=== PATIENT | female | born 1975 | race Caucasian/White ===

== ENCOUNTER → 2020-03-25 | Outpatient (CLI) | payer BC, SELFPAY | END | disposition home or self-care (01) | LOC: LABSPEC 16:03 | PROVIDERS: PCP Family Medicine; Referring Provider Family Medicine; Visit Provider Family Medicine | DX: Z20.828 Contact with and (suspected) exposure to other viral communicable diseases (principal) | CPT/HCPCS: 87635; U0003 ==

== ENCOUNTER → 2020-03-29 11:57 | Outpatient (CLI) | payer BC, SELFPAY | PROVIDERS: PCP Family Medicine; Visit Provider Family Medicine | DX: Z20.828 Contact with and (suspected) exposure to other viral communicable diseases (principal) | CPT/HCPCS: 87635; U0003 ==

== ENCOUNTER 2020-05-04 08:00 | Outpatient (RCR) | payer BC, SELFPAY | END 2020-05-04 23:59 | LOC: IMMUN 08:00 | PROVIDERS: PCP Family Medicine; Visit Provider Family Medicine | DX: Z23 Encounter for immunization (principal) | CPT/HCPCS: 0011A; 0012A ==

== ENCOUNTER → 2020-06-08 13:52 | Outpatient (CLI) | payer BC, SELFPAY ==
[2020-06-08 15:49] LABS: Anion Gap 6 (5-15); BUN 16 mg/dL (7-18); BUN/Creat Ratio 22.6 RATIO (10-20); Chloride 108 mmol/L (98-107); Cholesterol 187 mg/dL (200); Creatinine, Serum 0.71 mg/dL (0.55-1.02); EST Glomerular Filtration Rate 96 mL/min (>60); Est Glom Filt Rate - Afr Amer 116 mL/min (>60); Glucose 97 mg/dL (74-106); High Density Lipoprotein 67 mg/dL; Potassium 3.4 mmol/L (3.5-5.1); Sodium Level 140 mmol/L (136-145); Triglycerides 94 mg/dL; Very Low Density Lipoprotein 19 mg/dL (5-40)
--- NOTE | 2020-06-08 17:07 | RAD_ITS ---
STUDY: X-RAY - LEFT SHOULDER REASON FOR EXAM: Female, 44 years old. pain to left shoulder, pain with movement, limited range of motion TECHNIQUE: 4 view(s) of the shoulder. COMPARISON: None. FINDINGS: Normal glenohumeral articulation. Normal acromioclavicular joint. Normal acromion. Normal humeral head and visualized proximal humerus. The soft tissue structures are unremarkable. There is no demonstrated fracture. Normal visualized pulmonary apex. RAD/Shoulder min 2 Views IMPRESSION: Normal x-ray examination of the shoulder. Electronically Signed: Mikael Foley MD at 23:57 EST , Service support ,
== END ==
PROVIDERS: PCP Family Medicine; Referring Provider Family Medicine; Visit Provider Family Medicine
DX: Z00.00 Encounter for general adult medical examination without abnormal findings (principal); M25.512 Pain in left shoulder
CPT/HCPCS: 36415; 73030; 80048; 80061; 82306

== ENCOUNTER 2020-07-06 12:00 | Outpatient (RCR) | payer BC, SELFPAY ==
--- NOTE | 2020-06-17 13:36 | HP.PTEVAL_ITS ---
Patient's Visit Information IVONE BOWMAN is a 44 year old F referred to Physical Therapy by Dr. Martinez Carnes MD with a diagnosis of L shoudler pain. Date of Evaluation: 06/17/20 Physical Therapist: Neida Cobian DPT - Visit Plan Frequency: 2x /Week Duration: 4 Weeks Plan: 1. Manual each visit until full AROM is restored. 2. Focus on ROM and scap s/s. IE HEP: supine cane flex and abd, penedulum, wall wash, table walk away - Subjective Pt reports in decemeber loose ROM in L shoulder and arm. Got flu shot in february in L arm and 2 covid vaccines in same arm. Pt rerequies assistance to get dressed in morning. ext- pain in triceps, pain would last short period of time but now is lasting longer. Pain: 2/10 upper trap to elbow, tripically triceps- sharp and stabbing. if extends and hits 10/10. Pt reports nubmness up into neck and back area- feels like moya bite. rarely goes to finger. neck pain 2/10, ELIZALDE all the time. little dizzy and nauseous when pain hit but then goes away. better: tens unit. sleep: cant sleep longer than 45 minutes d/t pain, unable to get comfortable, stomach with arms up. x-ray: unremarkable. Meds: doesnt take anything for pain, doesnt like how it makes her feel. used a tens unit- helps with ROM with on but does not last. 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 PMHx: unremarkable - Objective Posture: FH,RS- very guarded of the left upper extremity. Gait: no deviation noted on LE but does have poor arm swing and trunk rotation. Palpation: tender along upper trap and into the infraspinatus- but reports good pain. Sensation: WNL in UE bilateral. ROM: Cervical: WNL in all planes, Shoulder: AROM: flexion: 90 degrees, Abd: 80 degrees, IR: to greater troch, ER: 30 degrees, PROM: flexion: 120 degrees, Abd: 100 degrees, IR: to belly, ER: 40 deg charissa- after PROM and AAROM exercises patient had improved AROM: Flexion: 120 degrees, Abd: 110 degrees, IR: to pocket, ER: 40 degrees and reported significant less pain with ROM and functional activities (putting hands on head and pulling pants up). AROM elbow/wrist/finger dexterity: WNL. Strength: Scap: fair minus, Shoulder: 2+/5 throughout with pain, Elbow: flexion: 4-/5, Extb: 4/4, Wrist: 5/5 steel heater strength: 60, 40( nauseating pain), 60 - Goals Goal 1:: Patient will be I with HEP and progression Goal Time Frame: 4-6 Weeks Goal 2:: Patient will maintain proper posture t/o tx session to demo increased scap s/s. Goal Time Frame: 4-6 Weeks Goal 3:: Patient will demo full AROM of the left shoulder to ease ADL's. Goal Time Frame: 4-6 Weeks - Rehabilitation Potential Physical Therapy Diagnosis: Patient presents with hypomobility- she has decreased ROM,strength and muscular endurance leading to poor posture and increased pain with ADL's. Rehabilitation Potential: Fair - Anticipated Interventions Therapeutic Exercise to Include: Strength training, Endurance training, Balance training, Coordination, Agility training, Body mechanics, Postural training, Flexibilty training, Neuromotor development, Passive ROM, Active ROM, Dynamic Lumbar Stabilization, Scapular Strength/Stabilization For the Purpose of:: To improve muscle performance and motor function Thank you for the opportunity to evaluate your patient. For Medicare and Medicare HMO plans, please review the plan of care and approve it. It will need to be FAXED BACK to us at [phone] for Medicare purposes. For Medicare only, by signing this I certify the plan of care. Please let me know if there are questions or concerns regarding this plan of care. Physician Signature: Date:
--- NOTE | 2020-07-08 08:08 | HP.PT.NRP ---
IVONE BOWMAN was seen in my office for initial evaluation on 06/17/20. The following Plan of Care was established for this patient: Initial Frequency: 2x /Week Initial Duration: 4 Weeks Therapeutic Exercise to Include: Strength training, Endurance training, Balance training, Coordination, Agility training, Body mechanics, Postural training, Flexibilty training, Neuromotor development, Passive ROM, Active ROM, Dynamic Lumbar Stabilization, Scapular Strength/Stabilization For the Purpose of:: To improve muscle performance and motor function This patient was last seen in our office . Pertinent comments regarding their Physical therapy will appear below: Patient cancelled all apts plans to see ortho- d/c at this time. At this point I will be discontinuing this patient from physical therapy. I would be happy to see this patient again in the future if found appropriate by the physician. Thank you! YUMIKO ThompsonT
== END 2020-07-06 19:00 | disposition home or self-care (01) ==
LOC: PT 12:00
PROVIDERS: PCP Family Medicine; Referring Provider Family Medicine; Visit Provider Family Medicine
DX: M25.512 Pain in left shoulder (principal)
CPT/HCPCS: 97110; 97140; 97162; 97530

== ENCOUNTER → 2020-08-05 11:04 | Outpatient (CLI) | payer BC, SELFPAY | PROVIDERS: PCP Family Medicine; Visit Provider Family Medicine | DX: Z01.818 Encounter for other preprocedural examination (principal) | CPT/HCPCS: 87635; U0002 ==

== ENCOUNTER → 2020-08-17 12:15 | Outpatient (CLI) | payer BC, SELFPAY ==
[2020-08-17 15:19] LABS: Absolute Lymphocyte Count 2.38 X10^3/uL (0.83-4.51); Absolute Neutrophil Count 10.2 X10^3/uL (2.0-7.7); Basophil# 0.05 X10^3/uL; Basophil% 0.4 % (0-1); Eosinophil# 0.12 X10^3/uL; Eosinophils% 0.9 % (0-5); Hematocrit 45.5 % (37-47); Hemoglobin 14.3 g/dL (12.0-15.0); Lymphocyte # 2.38 X10^3/ul (0.83-4.51); Lymphocyte % 17.7 % (19-41); Mean Corp Hgb Conc 31.4 g/dL (32-36); Mean Corpuscular Hgb 30.2 pg (27.0-32.0); Mean Platelet Vol. 9.9 fl (6.2-12.0); Monocyte# 0.71 X10^3/uL; Monocyte% 5.3 % (0-10); NRBC Flagged by Analyzer 0 % (0-5); Neutrophil # 10.16 X10^3/uL (2.7-7.7); Neutrophil % 75.3 % (47-70); Platelet Count 324 K/mm3 (150-450); RBC Distribution Width CV 12.7 % (11.6-14.6); RBC Distribution Width SD 44.6 fl (35.1-43.9); Red Blood Count 4.74 M/mm3 (4.2-5.4); White Blood Count 13.5 K/mm3 (4.4-11.0)
[2020-08-17 17:11] LABS: ALB/GLOB Ratio 1.1 RATIO (0.9-2.4); AST(SGOT) 11 U/L (15-37); Alanine Aminotransfer ALT/SGPT 19 U/L (13-56); Albumin, Serum 3.9 g/dL (3.2-5.0); Alkaline Phosphatase 60 U/L (45-117); Anion Gap 7 (5-15); BUN 15 mg/dL (7-18); Calcium,Total 9.1 mg/dL (8.5-10.1); Chloride 102 mmol/L (98-107); Creatinine, Serum 0.88 mg/dL (0.55-1.02); EST Glomerular Filtration Rate 74 mL/min (>60); Est Glom Filt Rate - Afr Amer 90 mL/min (>60); Follicle Stimulating Hormone 4.6 mIU/mL; Globulin 3.7 g/dL (2.2-4.2); Glucose 92 mg/dL (74-106); Luteinizing Hormone 3.5 mIU/mL; Potassium 3.5 mmol/L (3.5-5.1); Protein, Total 7.6 g/dL (6.4-8.2); Sodium Level 137 mmol/L (136-145); Thyroid Stim Hormone (TSH) 2.37 uIU/mL (0.358-3.74)
== END ==
PROVIDERS: PCP Family Medicine; Referring Provider Family Medicine; Visit Provider Registered Nurse
DX: N94.6 Dysmenorrhea, unspecified (principal)
CPT/HCPCS: 36415; 80053; 83001; 83002; 84443; 85025

== ENCOUNTER 2020-08-25 07:00 | Outpatient (RCR) | payer BC, SELFPAY ==
--- NOTE | 2020-07-22 08:22 | HP.PTEVAL ---
Patient's Visit Information IVONE BOWMAN is a 44 year old F referred to Physical Therapy by Dr. Bruno Conte DO with a diagnosis of Left Shoulder Pain. Date of Evaluation: 07/22/20 Physical Therapist: Neida Cobian DPT - Visit Plan Frequency: 2x /Week Duration: 4 Weeks Plan: Scapular s/s-ROM- mobilization, PROM and modalities of E-stim and ultrasound - Subjective Subjective from 06/17/2020-Pt reports in decemeber loose ROM in L shoulder and arm. Got flu shot in february in L arm and 2 covid vaccines in same arm. Pt rerequies assistance to get dressed in morning. ext- pain in triceps, pain would last short period of time but now is lasting longer. Pain: 2/10 upper trap to elbow, tripically triceps- sharp and stabbing. if extends and hits 10/10. Pt reports nubmness up into neck and back area- feels like moya bite. rarely goes to finger. neck pain 2/10, ELIZALDE all the time. little dizzy and nauseous when pain hit but then goes away. better: tens unit. sleep: cant sleep longer than 45 minutes d/t pain, unable to get comfortable, stomach with arms up. x-ray: unremarkable. Meds: doesnt take anything for pain, doesnt like how it makes her feel. used a tens unit- helps with ROM with on but does not last. 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 07/22/2020: Left Shoulder Pain- Saw Dr. Conte who gave her an injection in the left shoulder and try theray. The injection has not really helped her. She is not getting the shooting pains now its more consistent and chronic. Pain is more of a hot burning pain- chronically and at night its severe and wakes her up non-stop. During the day she will get sharp/shooting pains. She tries not to move it at all. Can't put her elbow on a desk, hold a phone, holding something. Worst: 10/10 but doesn't last long- Best: 1/10 more annoying feeling its always there. Pain is located in the axillay along the top and shoots down the tricep. It feels like she wants to pop it back in. No N/T in the finger. Decreased personnel training officer strength even a milk jug is hard to open. MRI: Torn Labrum. No increase in ELIZALDE, blurred vision or ELIZALDE. Is not doing any of the exercises. Still can't put her hair in a pony tail or really use the shoulder. Right hand dominate. - Objective Posture: FH, RS, increased guarding of the left upper extremity. Gait: decreased arm swing of the left UE and trunk rotation. Palpation: tender along medial border of the shoulder blade and into the upper trap, biciptal groove and down the tricep. ROM: AROM: cervical: WNL no pain, Elbow/Wrist/Hand: WNL shoulder: Flexion: 95 Abd: 70 degrees IR: behind the back ER: 20 degrees PROM: Flexion: 110 Abd: 90 degrees IR: to belly ER: 30 degrees severe guarding and empty end feel- reports catching. Strength: Facilities Clerk: Right: 70 lbs of force, Left: 60 lbs of force. Elbow: Flexion: 4/5, Extn: 4+/5, Shoulder Isometric: 4/5, Scap: fair minus - Goals Goal 1:: Patient will be I with HEP and progression. Goal Time Frame: 4-6 Weeks Goal 2:: Patient will demo full AROM of the left shoulder Goal Time Frame: 4-6 Weeks Goal 3:: Patient will maintain proper posture t/o tx session to demo increased scap s/s. Goal Time Frame: 4-6 Weeks Goal 4:: Patient will report sleeping through the night for 1 week Goal Time Frame: 4-6 Weeks - Rehabilitation Potential Physical Therapy Diagnosis: Patient presents with hypomobility- she has decreased ROM,strength, flex and muscular endurance leading to poor posture and increased pain with ADL's. Rehabilitation Potential: Fair - Anticipated Interventions Patient/Client Instruction: Educate patient on: Benefits of Fitness Program Therapeutic Exercise to Include: Strength training, Endurance training, Agility training, Body mechanics, Postural training, Flexibilty training, Neuromotor development, Passive ROM, Active ROM, Dynamic Lumbar Stabilization, Scapular Strength/Stabilization For the Purpose of:: To improve muscle performance and motor function Manual Therapy Techniques to Include: Mobilization, Functional dry needling, Soft tissue mobilization For the Purpose of:: To increase ROM TENS: Yes Cryotherapy (ice pack, ice massage): Yes Thermo therapy (hot pack): Yes Thank you for the opportunity to evaluate your patient. For Medicare and Medicare HMO plans, please review the plan of care and approve it. It will need to be FAXED BACK to us at [phone] for Medicare purposes. For Medicare only, by signing this I certify the plan of care. Please let me know if there are questions or concerns regarding this plan of care. Physician Signature: Date:
--- NOTE | 2020-08-05 07:59 | HP.PTREVAL ---
Dr. Bruno Conte, DO, It has been my pleasure to treat IVONE BOWMAN over the last 5 visits for Left Shoulder Pain. Please see the progress note below for an update on the physical therapy plan of care! Subjective: Patient reports that she saw the MD yesterday who plans to do a manipulation. She reports the shoulder is pretty much the same as it was when she started PT and it is limiting her ADL's. Objective/Function: Posture: FH, RS, increased guarding of the left upper extremity- holds it with the right UE in sitting/standing and moving. Gait: decreased arm swing of the left UE and trunk rotation- holds with right UE. Palpation: tender along medial border of the shoulder blade and into the upper trap, biciptal groove and down the tricep. ROM: AROM: cervical: WNL no pain, Elbow/Wrist/Hand: WNL shoulder: Flexion: 115 Abd: 90 degrees IR: behind the back ER: 30 degrees empty end feel- reports catching. Strength: Comb Machine Operator: Left: 60 lbs of force. Elbow: Flexion: 4/5, Extn: 4+/5, Shoulder Isometric: 4/5, Scap: fair minus Plan Plan: 08/05/2020: Patient to have a manipulation hopefully next week-will then continue with extensive PROM manual and ROM exercises s/p surgergical intervention. IE:Scapular s/s-ROM- mobilization, PROM and modalities of E-stim and ultrasound Goals Goal 1:: Patient will be I with HEP and progression. Goal Time Frame: 4-6 Weeks Goal 2:: Patient will demo full AROM of the left shoulder Goal Time Frame: 4-6 Weeks Goal 3:: Patient will maintain proper posture t/o tx session to demo increased scap s/s. Goal Time Frame: 4-6 Weeks Goal 4:: Patient will report sleeping through the night for 1 week Goal Time Frame: 4-6 Weeks Anticipated Interventions Patient/Client Instruction: Educate patient on: Benefits of Fitness Program Therapeutic Exercise to Include: Strength training, Endurance training, Agility training, Body mechanics, Postural training, Flexibilty training, Neuromotor development, Passive ROM, Active ROM, Dynamic Lumbar Stabilization, Scapular Strength/Stabilization For the Purpose of:: To improve muscle performance and motor function Manual Therapy Techniques to Include: Mobilization, Functional dry needling, Soft tissue mobilization For the Purpose of:: To increase ROM TENS: Yes Cryotherapy (ice pack, ice massage): Yes Thermo therapy (hot pack): Yes Please do not hesitate to contact me at [phone] by phone or if you have questions or concerns regarding this new plan of care! Sincerely, YUMIKO ThompsonT
--- NOTE | 2020-08-25 07:27 | HP.PTREVAL ---
Dr. Bruno Conte, DO, It has been my pleasure to treat IVONE BOWMAN over the last 10 visits for Left Shoulder Pain. Please see the progress note below for an update on the physical therapy plan of care! Subjective: Patient reports that her shoulder ROM is better but it still really bothers her. Its not frozen any more it just catches and almanzar. Pain radiates to the elbow. Worst: 7/10 but goes away quickly. Mostly when she reaches out to the side. Sleep: disturbed- wakes her up when the arm gets to high above her head. She feels the strength is okay. Does the cane exercises on her lunch break. Goes back to the MD tomorrow. Objective/Function: Posture: FH, RS, no guarding of the left UE Gait:good arm swing and trunk rotation. Palpation: tender along medial border of the shoulder blade and into the upper trap, biciptal groove and down the tricep. ROM: AROM: cervical: WNL no pain, Elbow/Wrist/Hand: WNL shoulder: WFL in all planes- with most pain in abduction, ER, IR. Strength: Certified Maintenance Welder: Right: 70 lbs of force, Left: 60 lbs of force. Elbow: Flexion: 4+/5, Extn: 4+/5, Shoulder Isometric: 4+/5, Scap: fair minus Plan Plan: 08/25/2020: Continue with POC- 2x a week for 4 weeks. Focus on continued maintenance of ROM and strength. Re-assess prior to DrFlorina visit Goals Goal 1:: Patient will be I with HEP and progression. Goal Time Frame: 4-6 Weeks Goal Progress: Progressing Goal 2:: Patient will demo full AROM of the left shoulder Goal Time Frame: 4-6 Weeks Goal Progress: Progressing Goal 3:: Patient will maintain proper posture t/o tx session to demo increased scap s/s. Goal Time Frame: 4-6 Weeks Goal Progress: Progressing Goal 4:: Patient will report sleeping through the night for 1 week Goal Time Frame: 4-6 Weeks Goal Progress: Progressing Anticipated Interventions Patient/Client Instruction: Educate patient on: Benefits of Fitness Program Therapeutic Exercise to Include: Strength training, Endurance training, Agility training, Body mechanics, Postural training, Flexibilty training, Neuromotor development, Passive ROM, Active ROM, Dynamic Lumbar Stabilization, Scapular Strength/Stabilization For the Purpose of:: To improve muscle performance and motor function Manual Therapy Techniques to Include: Mobilization, Functional dry needling, Soft tissue mobilization For the Purpose of:: To increase ROM TENS: Yes Cryotherapy (ice pack, ice massage): Yes Thermo therapy (hot pack): Yes Please do not hesitate to contact me at [phone] by phone or if you have questions or concerns regarding this new plan of care! Sincerely, YUMIKO ThompsonT
== END 2020-08-25 19:00 | disposition home or self-care (01) ==
LOC: PT 07:00
PROVIDERS: PCP Family Medicine; Referring Provider Orthopaedic Surgery; Visit Provider Orthopaedic Surgery
DX: M75.42 Impingement syndrome of left shoulder (principal); M75.02 Adhesive capsulitis of left shoulder; S43.492D Other sprain of left shoulder joint, subsequent encounter
CPT/HCPCS: 97014; 97035; 97110; 97140; 97161; 97164; 97530; G0283

== ENCOUNTER → 2020-11-22 | Outpatient (CLI) | payer BC, SELFPAY | END | disposition home or self-care (01) | LOC: LABSPEC 09:18 | PROVIDERS: PCP Family Medicine; Referring Provider Family Medicine; Visit Provider Family Medicine | DX: U07.1 COVID-19 (principal) | CPT/HCPCS: 87635; U0005; U0003 ==

== ENCOUNTER 2023-04-15 10:55 | Emergency (ER) | payer BC, SELFPAY ==
[2023-04-15 10:56] VITALS: BP 127/67; PULSE 119; RESP 16; TEMP 36.2; O2SAT 96; BMI 26.6
--- NOTE | 2023-04-15 11:08 | EX.ED.DYSGE1 ---
HPI History of Present Illness Chief Complaint: Allergic Reaction Informant: patient Narrative Narrative: Patient presents secondary to allergic reaction. She states she developed a rash to her ears 3 to 4 weeks ago after dying her hair. She continues to have itching and swelling to her ears. She states she recently got some patchy areas of rash over her back, buttock, legs. This morning she woke up with a sore throat but it seems to be improved now. She does feel that she has enlarged lymph nodes on her neck. PFSH PFSH Medical History no medical history no medical history Home Medications doxycycline monohydrate 100 mg capsule 100 mg PO BID #20 CAPSULES 04/15/23 [Rx Last Taken Unknown] fluconazole 200 mg tablet (Diflucan) 200 mg PO DAILY #1 TAB 04/15/23 [Rx Last Taken Unknown] prednisone 20 mg tablet 40 mg (2 x 20 mg) PO DAILY #8 tabs 04/15/23 [Rx Last Taken Unknown] Allergy/AdvReac Type Severity Reaction Status Date / Time No Known Allergies Allergy Verified 04/15/23 10:55 Surgical History (Updated 04/15/23 @ 11:[address] Leah Butterfield MD) History of tonsillectomy Social History Smoking Status: Never smoker ROS ROS ED Constitutional Constitutional ED: Denies chills or fever(s) Eyes Eyes: Denies discharge from eye(s) ENT ENT ED: Reports sore throat; Denies discharge from eye(s) or rhinorrhea Cardiovascular Cardiovascular: Denies chest pain or palpitations Respiratory/Chest Respiratory/Chest: Denies cough or dyspnea Gastrointestinal Gastrointestinal: Denies abdominal pain, nausea or vomiting Genitourinary Genitourinary ED: Denies difficulty urinating Musculoskeletal Musculoskeletal: Denies back pain or extremity pain Integumentary Reports rash; Denies Abrasions Neurologic Neurologic: Denies headache(s) or weakness Psychiatric Psychiatric: Denies anxiety or depression Allergic/Immunologic Allergic/Immunologic ED: Denies lip swelling or urticaria EXAM Physical Exam Const Vital Signs: 04/15/23 10:56 Temperature 97.2 F L Temperature Source Temporal Pulse Rate 119 H Respiratory Rate 16 Blood Pressure 127/67 H Blood Pressure Mean 87 Pulse Ox 96 Oxygen Delivery Method Room Air Positive well nourished and well developed General Appearance ED: well developed HEENT Reports moist mucous membranes HEENT Narrative: Left external ear edematous and slightly erythematous. Slight swelling of the ear canal but TM is visualized and normal. Posterior pharynx is erythematous with some drainage. Uvula midline. Eyes EOMs intact bilaterally Neck Neck Narrative: Mild cervical lymphadenopathy. Chest Wall inspection of chest normal and palpation of chest normal Resp normal respiratory effort and clear to auscultation bilaterally Cardio regular rate and regular rhythm GI non-tender Palpation: soft Extremity normal to inspection Neuro oriented x3 Skin Skin Narrative: Patchy erythematous rash over the abdomen. No vesicles or target lesions. MDM MDM MDM Narrative Medical decision making narrative: I am concerned the patient has a secondary bacterial cellulitis to her left ear especially. She will be treated with antibiotics. Because these antibiotics will also cover her throat I did not pursue a rapid strep. Patient will be treated with prednisone for her rash. Discharge Plan Triage Chief Complaint: Allergic Reaction ED Provider: Leah Butterfield Dx/Rx/DC Orders Clinical Impression: Cellulitis, Rash Instructions: ED Allergic Reaction Local Other, ED Cellulitis Prescriptions: New prednisone 20 mg tablet 40 mg PO DAILY Qty: 8 0RF fluconazole [Diflucan] 200 mg tablet 200 mg PO DAILY Qty: 1 0RF doxycycline monohydrate 100 mg capsule 100 mg PO BID Qty: 20 0RF Primary Care Provider: Martinez Carnes Referrals: Martinez Carnes MD [Primary Care Provider] - 1 Week Disposition Disposition: Home, Self Care
[2023-04-15] MEDS: predniSONE 20 MG Tablet 40 MG PO (11:18)
[2023-04-15] MEDS: Doxycycline 100 MG CAPSULE PO (11:18)
--- OUTSIDE RECORDS SUMMARY | 2023-04-15 11:24 | XMS RPT_ITS | CCD ---
Author Name Unknown Address [address] [place] [address] Organization [facility] Results Test Name Value Interpretation Reference Range Facil ity Progress note 09-09-2020 Note Date & Type Note Facility 09-09-2020 Note HNO ID: [id number] Author: Sherrie Hong MD Service: ? Author Type: Physician Type: Progress Notes Filed: 09/09/2020 8:34 AM Note Text: Galina presents today for IUD insertion for abnormal uterine bleeding. Patient's last menstrual period was 07/29/2020. GC/chlamydia: Not done: no risk factors and/or patient declines screening test: negative Side effects including irregular bleeding were discussed with the patient. The patient understands that it should be removed in 6 years or sooner if the patiient desires a . IUD source: office provided IUD lot #: [id number] Exp date: 02/13/23 UNIVERSAL PROTOCOL / SAFETY CHECKLIST Procedure to be performed: Intrauterine Device (IUD) Insertion: Mirena Sign in Communication: Completed Time Out: Team Confirms the Correct Patient, Correct Procedure, Correct Site and Site Marking, Correct Position (if applicable), Prep and Dry Time (if applicable). Time: 8:23 Affirmation of Time Out: YES Sign Out Discussion: Completed The uterus sounded to 7.5 cm and the uterus is Midposition.. After prepping the cervix with betadine and using sterile technique, the Mirena IUD was inserted after the cervix was dilated and the string was cut to 4cm from the external os of the cervix. Patient tolerated procedure well. PLAN: Patient was advised to observe for signs and symptoms of infection including but not limited to fever, malodorous vaginal discharge and/or pain. The patient was told to check the string monthly for accurate placement. Bleeding expectations were reviewed. Follow up for next annual exam or sooner as needed. 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 TRAMADOL ORAL Take by mouth. Patient not taking: Reported on 09/02/2020 FLEXERIL ORAL Take by mouth. Patient not taking: Reported on 09/02/2020 Problem List As Of Date 09/02/2020 Noted Resolved Female infertility of unspecified origin [N97.9]11/13/2005 01/19/2015 Moderate dysplasia of cervix [N87.1] 11/13/2005 01/19/2015 Encounter Status:Closed by IRLANDA SCHUSTER on 09/02/20 [facility] Progress note 09-02-2020 Note Date & Type Note Facility 09-02-2020 Note HNO ID: [id number] Author: Sherrie Hong MD Service: ? Author Type: Physician Type: Progress Notes Filed: 09/02/2020 9:03 AM Note Text: Manager Of Compliance offered: Patient accepts, visit chaperoned by Stefany Kelly MAFlorina Mojica is a 45 year old who presents today for an endometrial biopsy for abnormal uterine bleeding. test: negative UNIVERSAL PROTOCOL / SAFETY CHECKLIST Procedure to be performed: Endometrial Biopsy Sign in Communication: Completed Time Out: Team Confirms the Correct Patient, Correct Procedure, Correct Site and Site Marking, Correct Position (if applicable), Prep and Dry Time (if applicable). Time: 8:53 Affirmation of Time Out: YES Sign Out Discussion: Completed PROCEDURE: EXTERNAL GENITALIA: Normal in appearance without lesions VAGINA: Normal in appearance without lesions BIOPSY: Speculum placed into the vagina with excellent visualization of the cervix. Cervix cleaned with betadine. Anterior lip of cervix grasped with single toothed tenaculum. Uterus sounded to 7 cm. Pipelle inserted into the uterus without difficulty and endometrial biopsy obtained. Specimen labeled and sent to pathology. Hemostasis achieved. Procedure Summary: Patient tolerated procedure well. ASSESSMENT: abnormal uterine bleeding PLAN: Specimens labeled and sent to Pathology. Will notify patient of results in 1-2 weeks. Post-procedure instructions reviewed and written material given to the patient. F/ for Mirena IUD insertion Sherrie Hong MD [facility] Progress note 08-20-2020 Note Date & Type Note Facility 08-20-2020 Note HNO ID: [id number] Author: Sherrie Hong MD Service: ? Author Type: Physician Type: Progress Notes Filed: 08/20/2020 4:03 PM Note Text: Galina Davison is a 45 year old female who presents for concerns. HPI: Patient reports menses have typically been monthly AND light. Starting this past February she had some arm AND shoulder issues. She reports fatigue and trouble sleeping. Also she has some nausea. Patient saw a PARKING ANALYST at her primary care office for her concerns. July 29 her normal menses started and she is still bleeding from that. Today the VB is just spotting. Also patient reports that she has been tearful AND irritable. She reports intermittent cramping since . 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 prior to tonsillectomy, very few episodes after FAMILY HISTORY Problem Relation Age of Onset - other (Other) Mother MULTIPLE SCLEROSIS - Hypertension Father - Lipids Father - other (Crohn's) Sister - Cancer Maternal Grandmother lung - Psychiatry Maternal Grandmother DEMENTIA - Diabetes Maternal Grandfather also high cholesterol - Cancer Maternal Grandfather Bone - Skin Cancer Maternal Grandfather - other (NADIA GEHRIG'S DISEASE) Paternal Grandmother - other (Crohn's) Paternal Grandmother - Heart Paternal Grandfather [place] age 59 - Breast Cancer Maternal Aunt Social History Tobacco Use - Smoking status: Never Smoker - Smokeless tobacco: Never Used Substance Use Topics - Alcohol use: Yes Comment: Occasionally - Drug use: No Current Outpatient Medications Medication Sig - cholecalciferol, vitamin D3, (VITAMIN D3 ORAL) Take by mouth. - tramadol HCl (TRAMADOL ORAL) Take by mouth. - cyclobenzaprine HCl (FLEXERIL ORAL) Take by mouth. No current facility-administered medications for this visit. Allergies As of Date: 08/20/2020 Allergen Noted Reaction NO KNOWN DRUG ALLERGIES 02/21/2007 Fully Assessed 08/20/2020 Allergies and current medication updated:Yes EXAM: BP 118/80 Wt 137 lb (62.1kg) LMP 07/29/2020 GENERAL: pleasant, female in no apparent distress PELVIC: external genitalia normal, normal Bartholin's glands, urethra, [place]'s glands, no vulvar lesions, no cervical lesions, good vaginal support, physiologic discharge present, normal appearing perineal body and perianal region BIMANUAL: uterus normal size, shape and consistency, no adnexal masses and non-tender ASSESSMENT AND PLAN: 45yo female with AUB AND fatigue Reviewed pcp note AND labs showing normal TSH/CBC/CMP. Suspect symptoms are likely from stress AND lack of sleep. Advised on meditation. Pap with hpv. Check pelvic US and f/u afterwards for EMB. Discussed possible treatment options including Mirena IUD. Medical Decision Making: Problems: Moderate: New problem with uncertain prognosis Data: Unique source(s) for external note(s) reviewed: 1 Unique test result(s) reviewed: 3+ Unique test(s) ordered: 1 Risk: Moderate: Moderate risk from testing/treatment Medical Decision Making Level: 4 - Moderate Sherrie Hong MD [facility] Progress note 07-06-2020 Note Date & Type Note Facility 07-06-2020 Note HNO ID: [id number] Author: Santa Thomas (Tech) Service: Radiology Author Type: Operational Risk Consultant Type: Progress Notes Filed: 07/06/2020 8:47 AM Note Text: Radiology Service Progress Note PATIENT NAME: Galina Davison DATE OF SERVICE: July 06, 2020 TIME: 8:46 AM PATIENT IDENTITY VERIFICATION COMPLETED USING TWO (2) IDENTIFIERS: Name and Date of confirmed by patient verbally. FALL SCREENING: Has the patient had 2 falls in the last year or 1 fall with injury or currently using an Ambulatory Assistive Device (Walker, Cane, Wheelchair, Crutches, etc.)? No PATIENT GENDER DATA: Female. status: : No status: NO. PATIENT RELEVANT IMPLANT DATA REVIEWED: Yes RADIOLOGY DEPARTMENT: MR; Exam(s) Completed: Upper MSK: Shoulder, left PERIPHERAL IV DATA: Not applicable SIGNED BY: Santa Thomas July 06, 2020 8:46 AM [facility] Summary Purpose Family History No Family History Records FoundNo Family History Records Found Advance Directives No Advanced Directives Records FoundNo Advanced Directives Records Found Additional Source Comments (unrecognized sect ion and content) No Status Records Found INFORMATION SOURCE (unrecogn ized section and content) DATE CREATED AUTHOR AUTHOR'S ORGANIZ ATION 04/24/2021 [facility] FOR RECORDS PERTAINING TO PATIENTS WHO ARE OR HAVE BEEN ENROLLED IN A CHEMICAL DEPENDENCY/SUBSTANCEABUSE PROGRAM, SOME INFORMATION MAY BE OMITTED. This clinical summary was aggregated from multiple sources. Caution should be exercised in using it in the provision of clinical care. This summary normalizes information from multiple sources, and as a consequence, information in this document may materially change the coding, format and clinical context of patient data. In addition, data may be omitted in some cases. CLINICAL DECISIONS SHOULD BE BASED ON THE PRIMARY CLINICAL RECORDS. [facility]. provides no warranty or guarantee of the accuracy or completeness of information in this document.
== END 2023-04-15 11:23 | disposition home or self-care (01) ==
LOC: ED 11:22
PROVIDERS: Emergency Provider Emergency Medicine; PCP Family Medicine; Visit Provider Emergency Medicine
DX: L03.90 Cellulitis, unspecified (principal); R21 Rash and other nonspecific skin eruption
CPT/HCPCS: 99283

== ENCOUNTER → 2023-04-25 | Outpatient (CLI) | payer BC, SELFPAY ==
--- OUTSIDE RECORDS SUMMARY | 2023-04-25 16:31 | XMS RPT_ITS | CCD ---
Author Name Unknown Address [address] [place] [address] Organization [facility] Results Test Name Value Interpretation Reference Range Facil ity Progress note 09-09-2020 Note Date & Type Note Facility 09-09-2020 Note HNO ID: [id number] Author: Sherrie Hong MD Service: ? Author [...] IUD source: office provided IUD lot #: [id number] Exp date: 02/13/23 UNIVERSAL PROTOCOL / SAFETY [...] or sooner as needed. 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 Author Type: Physician Type: Progress Notes Filed: 09/02/2020 9:03 AM Note Text: Manager General offered: Patient accepts, visit chaperoned by Stefany [...] for Mirena IUD insertion Sherrie Hong MD [facility] Progress note 08-20-2020 Note Date & Type Note Facility 08-20-2020 Note HNO ID: [id number] Author: Sherrie Hong MD Service: ? Author [...] she has some nausea. Patient saw a CONCESSIONIST at her primary care office for her [...] ELCTRO EXCI 04/16/2003 LEEP-Cervix - COLONSCPY REM [id number] 07/15/2013 - MODERNA COVID-19 VACCINE 05/22/2020 second [...] (Crohn's) Paternal Grandmother - Heart Paternal Grandfather [place] age 59 - Breast Cancer Maternal Aunt [...] external genitalia normal, normal Bartholin's glands, urethra, [place]'s glands, no vulvar lesions, no cervical lesions, [...] Level: 4 - Moderate Sherrie Hong MD [facility] Progress note 07-06-2020 Note Date & Type Note Facility 07-06-2020 Note HNO ID: [id number] Author: Santa Thomas (Tech) Service: Radiology Author Type: [employer] Container Winding Operator Type: Progress Notes Filed: 07/06/2020 8:47 AM [...] Santa Thomas July 06, 2020 8:46 AM [facility] Summary Purpose Family History No Family History Records FoundNo Family History Records Found Advance Directives No Advanced Directives Records FoundNo Advanced Directives Records Found Additional Source Comments (unrecognized sect ion and content) No Status Records Found INFORMATION SOURCE (unrecogn ized section and content) DATE CREATED AUTHOR AUTHOR'S ORGANIZ ATION 04/24/2021 [facility] FOR RECORDS PERTAINING TO PATIENTS WHO [...] BE BASED ON THE PRIMARY CLINICAL RECORDS. [facility] [employer] [facility]. provides no warranty or guarantee of the accuracy or completeness of information in this document.
[2023-04-25 17:42] LABS: Absolute Neutrophil Count 9.6 X10^3/uL (2.0-7.7); Basophil% 0.8 % (0-1); Eosinophil# 0.16 X10^3/uL; Eosinophils% 1.3 % (0-5); Hematocrit 46.3 % (37-47); Hemoglobin 14.6 g/dL (12.0-15.0); Lymphocyte % 16.6 % (19-41); Mean Corp Hgb Conc 31.5 g/dL (32-36); Mean Corpuscular Hgb 30.2 pg (27.0-32.0); Mean Corpuscular Volume 95.9 fL (81-99); Monocyte# 0.69 X10^3/uL; Monocyte% 5.4 % (0-10); NRBC Flagged by Analyzer 0 % (0-5); Neutrophil # 9.55 X10^3/uL (2.7-7.7); Neutrophil % 75.3 % (47-70); Platelet Count 348 K/mm3 (150-450); RBC Distribution Width CV 12.5 % (11.6-14.6); RBC Distribution Width SD 43.7 fl (35.1-43.9); Red Blood Count 4.83 M/mm3 (4.2-5.4); White Blood Count 12.7 K/mm3 (4.4-11.0)
[2023-04-25 18:21] LABS: ALB/GLOB Ratio 1.3 RATIO (0.9-2.4); AST(SGOT) 20 U/L (15-37); Alanine Aminotransfer ALT/SGPT 21 U/L (13-56); Albumin, Serum 4.3 g/dL (3.2-5.0); Alkaline Phosphatase 59 U/L (45-117); Anion Gap 6 (5-15); BUN 14 mg/dL (7-18); BUN/Creat Ratio 18.3 RATIO (10-20); Calcium,Total 8.9 mg/dL (8.5-10.1); Chloride 104 mmol/L (98-107); Creatinine, Serum 0.76 mg/dL (0.55-1.02); EST Glomerular Filtration Rate 87 mL/min (>60); Est Glom Filt Rate - Afr Amer 105 mL/min (>60); Globulin 3.3 g/dL (2.2-4.2); Glucose 101 mg/dL (74-106); Potassium 3.6 mmol/L (3.5-5.1); Protein, Total 7.6 g/dL (6.4-8.2); Sodium Level 137 mmol/L (136-145)
[2023-04-27 16:09] LABS: EBV Acute VCA IgM < 36.0 U/mL (0.0-35.9); EBV Nuclear Antigen IgG < 18.0 U/mL (0.0-17.9)
== END | disposition home or self-care (01) ==
LOC: MFPLAB 16:19
PROVIDERS: PCP Family Medicine; Visit Provider Family Medicine
DX: R21 Rash and other nonspecific skin eruption (principal)
CPT/HCPCS: 36415; 80053; 85025; 86664; 86665